=== PATIENT | female | born 1980 | race Hispanic/Latino ===

== ENCOUNTER 2018-12-14 08:24 | Inpatient (IN) | payer SELFPAY ==
[~2018-12-14] VITALS: Ht 162.6 cm; Wt 91.2 kg
[2018-12-14] MEDS ORDERED: SODIUM CHLORIDE 0.9% 1000ML 1,000 ML IV STA (08:50)
[2018-12-14] MEDS ORDERED: VANCOMYCIN 1GM/NS 250 ML 250 ML IV ONE (09:30)
[2018-12-14] MEDS: PIPER-TAZ 3.375 GM 50 ML IV SCH ×3 (09:30→21:08)
[2018-12-14 09:42] LABS: BASOPHILS % 0.4 % (0.0-1.0); EOSINOPHILS # (AUTO) 0.1 (0.0-0.4); EOSINOPHILS % 0.7 % (0.0-6.0); HEMATOCRIT 38.8 % (34.2-44.1); HEMOGLOBIN 13.7 g/dL (12.0-16.0); MEAN CORPUSCULAR HEMOGLOBIN 28.8 pg (28-32); MEAN CORPUSCULAR HGB CONC 35.3 g/dL (31-35); MEAN CORPUSCULAR VOLUME 81.5 fL (81-99); MONOCYTES # (AUTO) 0.4 (0.2-0.8); MONOCYTES % 4.3 % (4.4-11.3); NEUTROPHILS # (AUTO) 6.9 (2.1-6.9); NEUTROPHILS % 73.1 % (38.7-80.0); PLATELET COUNT 382 x10e3/uL (140-360); RED BLOOD COUNT 4.76 x10e6/uL (3.6-5.1); RED CELL DISTRIBUTION WIDTH 12.9 % (11.7-14.4)
[2018-12-14 09:47] LABS: BILIRUBIN,URINE NEGATIVE (NEGATIVE); CLARITY,URINE CLOUDY (CLEAR); COLOR,URINE YELLOW (YELLOW); KETONES,URINE 1+ (NEGATIVE); LEUKOCYTE ESTERASE ,URINE NEGATIVE (NEGATIVE); NITRITE,URINE POSITIVE (NEGATIVE); PROTEIN,URINE DIPSTICK TRACE (NEGATIVE); URINE UROBILINOGEN 0.2 mg/dL (0.2 - 1)
[2018-12-14 09:48] LABS: PREGNANCY TEST, URINE NEGATIVE (NEGATIVE)
[2018-12-14 09:49] LABS: INR 0.84; PROTHROMBIN TIME 12.3 seconds (11.9-14.5)
[2018-12-14 09:50] LABS: PARTIAL THROMBOPLASTIN TIME 29.3 seconds (23.8-35.5)
[2018-12-14 09:59] LABS: BACTERIA,URINE MODERATE /HPF; EPITHELIAL CELLS,URINE MANY /LPF
[2018-12-14 10:02] LABS: ALANINE AMINOTRANSFERASE 21 IU/L (0-55); ALBUMIN/GLOBULIN RATIO 0.6 (0.8-2.0); ALKALINE PHOSPHATASE 118 IU/L (40-150); ANION GAP 13.7 mmol/L (8-16); BLOOD UREA NITROGEN 7 mg/dL (7-26); BUN/CREATININE RATIO 10 (6-25); CALCIUM 9.3 mg/dL (8.4-10.2); CARBON DIOXIDE 25 mmol/L (22-29); CHLORIDE 96 mmol/L (98-107); CREATINE KINASE 24 IU/L (29-168); CREATININE, SERUM 0.71 mg/dL (0.57-1.11); EST GLOMERULAR FILTRATION RATE > 60 ML/MIN (60-); GLUCOSE 392 mg/dL (74-118); MAGNESIUM 1.7 MG/DL (1.3-2.1); POTASSIUM 3.7 mmol/L (3.5-5.1); SODIUM 131 mmol/L (136-145)
[2018-12-14] MEDS ORDERED: DEXTROSE 50% SYRINGE 50 ML IV PRN (11:00)
[2018-12-14] MEDS ORDERED: MORPHINE SULFATE 2 MG/ML SYR 1ML IV PRN (11:00)
--- NOTE | 2018-12-14 11:08 | Diagnostic Imaging Report ---
EXAMINATION: CHEST SINGLE (PORTABLE) INDICATION: DIAB FOOT ULCER/CELLULITIS COMPARISON: None FINDINGS: TUBES and LINES: None. LUNGS: Lungs are mildly hypoinflated. There is no evidence of pneumonia or pulmonary edema. PLEURA: No pleural effusion or pneumothorax. HEART AND MEDIASTINUM: The cardiomediastinal silhouette is unremarkable. BONES AND SOFT TISSUES: No acute osseous lesion. Soft tissues are unremarkable. UPPER ABDOMEN: No free air under the diaphragm. IMPRESSION: Mild bibasilar subsegmental atelectasis. Signed by: Dr. Juju Dong M.D. on 12/14/2018 11:04 AM
--- NOTE | 2018-12-14 11:18 | Diagnostic Imaging Report ---
FOOT LEFT COMPLETE - 3 views HISTORY: Diabetic foot ulcer. Cellulitis. COMPARISON: None available. FINDINGS: Bones: No acute displaced fracture. Osseous alignment is within normal limits. Joints: The joint spaces are well-maintained. Soft tissues: Vascular calcifications. IMPRESSION: No acute osseous abnormality. Signed by: Dr. Juju Dong M.D. on 12/14/2018 11:14 AM
--- OUTSIDE RECORDS SUMMARY | 2018-12-14 11:29 | XMS REPORT ---
Author Author [facility] Address Unknown Phone Unavailable Care Team Providers Care Sales Route Driver Name Role Phone Kyree CHAVEZ Unavailable Unavailable Problems This patient has no known problems. Allergies, Adverse Reactions, Alerts This patient has no known allergies or adverse reactions. Medications This patient has no known medications. Encounters Start Date/Time End Date/Time Encounter Type Admission Type Attending Clinicians Care Facility Care Department Encounter ID 2018-12-11 17:11:54 2018-12-11 17:11:54 Emergency [facility] [id number] 2018-12-11 15:38:00 2018-12-11 15:38:00 Emergency [facility] [id number] Results Test Description Test Time Test Comments Text Results Atomic Results Result Comments CHEST SINGLE (PORTABLE) 2018-12-14 11:04:00 [facility] [address] [address] Patient Name: TIANA BOWMAN MR #: [id number] : 1980 Age/Sex: 38/F Req #: [id number] Adm Physician: Ordered by: CIARAN CHAVEZ MD Report #: [id number] Location: ER Room/Bed: Procedure: [id number] DX/CHEST SINGLE (PORTABLE) Exam Date: Exam Time: REPORT STATUS: Signed EXAMINATION: CHEST SINGLE (PORTABLE) INDICATION: DIAB FOOT ULCER/CELLULITIS COMPARISON: None FINDINGS: TUBES and LINES: None. LUNGS: Lungs are mildly hypoinflated. There is no evidence of pneumonia or pulmonary edema. PLEURA: No pleural effusion or pneumothorax. HEART AND MEDIASTINUM: The cardiomediastinal silhouette is unremarkable. BONES AND SOFT TISSUES: No acute osseous lesion. Soft tissues are unremarkable. UPPER ABDOMEN: No free air under the diaphragm. IMPRESSION: Mild bibasilar subsegmental atelectasis. Signed by: Dr. Juju Dong M.D. on 12/14/2018 11:04 AM Dictated By: BOUCHRA DONG MD, MD 03 Transcribed By: TRAY on 12/14/181103 COPY TO: CIARAN CHAVEZ MD FOOT LEFT COMPLETE 2018-12-14 11:04:00 [address] [address] Patient Name: TIANA BOWMAN MR #: [id number] : 1980 Age/Sex: 38/F Req #: [id number] Adm Physician: Ordered by: CIARAN CHAVEZ MD Report #: [id number] Location: ER Room/Bed: Procedure: [id number] DX/FOOT LEFT COMPLETE Exam Date: Exam Time: REPORT STATUS: Signed FOOT LEFT COMPLETE - 3 views HISTORY: Diabetic foot ulcer. Cellulitis. COMPARISON: None available. FINDINGS: Bones: No acute displaced fracture. Osseous alignment is within normal limits. Joints: The joint spaces are well-maintained. Soft tissues: Vascular calcifications. IMPRESSION: No acute osseous abnormality. Signed by: Dr. Juju Dong M.D. on 12/14/2018 11:14 AM Dictated By: BOUCHRA DONG MD, MD 13 Transcribed By: TRAY on 12/14/181113 COPY TO: CIARAN CHAVEZ MD
--- OUTSIDE RECORDS SUMMARY | 2018-12-14 11:29 | XMS REPORT | Clinical Summary ---
Author Author [facility] Organization [facility] Address Unknown Phone Unavailable Care Team Providers Care Board Handler Name Role Phone PCP Unavailable Allergies No Known Allergies Medications End Date Status Medication Sig Dispensed Refills Start Date Active blood glucose Use as 1 Kit 0 meterIndications: Type 2 directed.. 7 diabetes mellitus without complication, without long-term current use of insulin Active blood glucose (PRECISION 2 times 100 Each 11 XTRA TEST STRIPS) test weekly to 7 stripsIndications: Type 2 test blood diabetes mellitus without sugar. complication, without long-term current use of insulin Active lancets 28 by 100 Each gaugeIndications: Type 2 MISCELLANEOUS 7 diabetes mellitus without route 2 times complication, without weekly. long-term current use of insulin 01/10/2019 Active metFORMIN (GLUCOPHAGE) Take 1 tablet 60 tablet 0 500 mg tabletIndications: by mouth 2 9 Type 2 diabetes mellitus times daily without complication, (with meals) without long-term current for 30 days. use of insulin 12/21/2018 Active clindamycin (CLEOCIN HCL) Take 1 40 capsule 0 300 mg capsule by 9 capsuleIndications: Left mouth 4 times foot pain daily for 10 days. Active clotrimazole (LOTRIMIN) 1 Apply to 30 g 0 % topical affected area 9 creamIndications: Left 2 times foot pain daily. 12/11/2018 Discontinued metFORMIN (GLUCOPHAGE) Take 1 tablet 180 tablet 0 500 mg tabletIndications: by mouth 2 7 Type 2 diabetes mellitus times daily without complication, (with meals). without long-term current use of insulin Active Problems Problem Noted Date Non-compliance with treatment 04/19/2009 HTN (hypertension) 02/28/2009 GDM, class A2 02/28/2009 Pulmonary embolism - h/o 02/28/2009 Encounters Care Team Description Date Type Specialty Hermes Mcmillan MD Left foot pain (Primary Dx); Type 2 diabetes mellitus without complication, without long-term current use of insulin 12/11/2018 Emergency Emergency Medicine 12/11/2018 Travel after 12/13/2017 Family History Medical History Relation Name Comments Family Medical History Unknown Relation Name Status Comments Social History Date Tobacco Use Types Packs/Day Years Used Never Smoker Alcohol Use Drinks/Week oz/Week Comments No Sex Assigned at Date Recorded Not on file Industry Job Start Date Occupation Not on file Not on file Not on file Travel End Travel History Travel Start No recent travel history available. Last Filed Vital Signs Time Taken Vital Sign Reading 12/11/2018 7:26 PM [employer] Blood Pressure 126/86 12/11/2018 7:26 PM [employer] Pulse 90 12/11/2018 7:26 PM [employer] Temperature 36.9 C (98.4 F) 12/11/2018 7:26 PM [employer] Respiratory Rate 16 12/11/2018 7:26 PM [employer] Oxygen Saturation 99% - Inhaled Oxygen - Concentration 12/11/2018 2:02 PM [employer] Weight 87.5 kg (193 lb) - Height - 02/12/2017 2:34 PM CDT Body Mass Index 36.47 Plan of Treatment Health Maintenance Due Date Last Done Comments DM Retinal Exam (Yearly) 2000 DM Foot Exam (Yearly) 01/27/2018 01/27/2017 DM HGBA1C (Yearly) 01/27/2018 01/27/2017, 03/19/2006 DM Microalbumin Urine 02/06/2018 02/06/2017, 01/27/2017, 04/05/2009, Scrn (Yearly) Additional history exists IMM Influenza Seasonal 08/02/2018Aug to December (>/=19 yrs) Cervical Cancer Scrn (3 02/13/2020 02/12/2017 Yrs) Procedures Comments Procedure Name Priority Date/Time Associated Diagnosis GLUCOSE POC Routine 12/11/2018 6:50 PM [employer]INE[employer] XRAY ANKLE 3 VIEW MIN STAT 12/11/2018 Left foot pain 5:30 PM [employer] XRAY FOOT 3 VIEWS MIN STAT 12/11/2018 Left foot pain 5:30 PM [employer] BMP POC Routine 12/11/2018 5:13 PM [employer] ENGINEER CBC/DIFF STAT 12/11/2018 4:24 PM [employer] ENGINEER after 12/13/2017 Results * GLUCOSE POC (12/11/2018 6:50 PM CORE JAVA ENGINEER) Glucose POC 310 (H) 74 - 106 mg/dL [facility] Performing Organization Address City/State/Zipcode Phone Number [facility] * XRAY FOOT 3 VIEWS MIN (12/11/2018 5:30 PM CORE JAVA ENGINEER) Impressions Performed At IMPRESSION: SMS 1.No acute fracture or malalignment. 2.Diffuse subcutaneous edema. This [facility] radiology report is a preliminary resident dictation until finalized by an attending.Changes to this preliminary report may occur in an additional preliminary or finalized version. Dictated By: Cindy eTixeira MD, 12/11/2018 5:36 PM I have reviewed the study and agree with the findings in this report. Signed By: Cullen Neff MD, 12/11/2018 6:42 PM Narrative Performed At EXAM: XR LEFT ANKLE 3 VIEWS SMS EXAM: XR LEFT FOOT 3 VIEWS DATE: 12/11/2018 5:11 PM INDICATION: left foot pain and swelling. Left foot pain ADDITIONAL HISTORY: '38 y.o female?who came to the with c/o swelling and pain to left foot. Pt reports that she had a cut on her greater toe and states she began to have inflammation and redness to her foot.' COMPARISON: None TECHNIQUE: 3 views of the ankle, 3 views of the foot. FINDINGS: Ankle: No acute fracture or malalignment is identified. The ankle mortise is congruent. No ankle joint effusion is appreciated. Foot: No acute fracture or malalignment is identified. Soft tissues: Diffuse subcutaneous edema. No subcutaneous emphysema. Overlying densities over the toes likely represent superficial debris. Vascular calcifications noted. Procedure Note Interface, Rad/Mammog In - 12/11/2018 6:47 PM C[employer] JAVA ENGINEER EXAM: XR LEFT ANKLE 3 VIEWS EXAM: XR LEFT FOOT 3 VIEWS DATE: 12/11/2018 5:11 PM INDICATION: left foot pain and swelling. Left foot pain ADDITIONAL HISTORY: '38 y.o female?who came to the with c/o swelling and pain to left foot. Pt reports that she had a cut on her greater toe and states she began to have inflammation and redness to her foot.' COMPARISON: None TECHNIQUE: 3 views of the ankle, 3 views of the foot. FINDINGS: Ankle: No acute fracture or malalignment is identified. The ankle mortise is congruent. No ankle joint effusion is appreciated. Foot: No acute fracture or malalignment is identified. Soft tissues: Diffuse subcutaneous edema. No subcutaneous emphysema. Overlying densities over the toes likely represent superficial debris. Vascular calcifications noted. IMPRESSION IMPRESSION: 1. No acute fracture or malalignment. 2. Diffuse subcutaneous edema. This [facility] radiology report is a preliminary resident dictation until finalized by an attending. Changes to this preliminary report may occur in an additional preliminary or finalized version. Dictated By: Cindy Teixeira MD, 12/11/2018 5:36 PM I have reviewed the study and agree with the findings in this report. Signed By: Cullen Neff MD, 12/11/2018 6:42 PM Performing Organization Address City/State/[facility] Phone Number SMS * XRAY ANKLE 3 VIEW MIN (12/11/2018 5:30 PM CORE JAVA ENGINEER) Impressions Performed At IMPRESSION: SMS 1.No acute fracture or malalignment. 2.Diffuse subcutaneous edema. This [facility] radiology report is a preliminary resident dictation until finalized by an attending.Changes to this preliminary report may occur in an additional preliminary or finalized version. Dictated By: Cindy Teixeira MD, 12/11/2018 5:36 PM I have reviewed the study and agree with the findings in this report. Signed By: Cullen Neff MD, 12/11/2018 6:42 PM Narrative Performed At EXAM: XR LEFT ANKLE 3 VIEWS SMS EXAM: XR LEFT FOOT 3 VIEWS DATE: 12/11/2018 5:11 PM INDICATION: left foot pain and swelling. Left foot pain ADDITIONAL HISTORY: '38 y.o female?who came to the with c/o swelling and pain to left foot. Pt reports that she had a cut on her greater toe and states she began to have inflammation and redness to her foot.' COMPARISON: None TECHNIQUE: 3 views of the ankle, 3 views of the foot. FINDINGS: Ankle: No acute fracture or malalignment is identified. The ankle mortise is congruent. No ankle joint effusion is appreciated. Foot: No acute fracture or malalignment is identified. Soft tissues: Diffuse subcutaneous edema. No subcutaneous emphysema. Overlying densities over the toes likely represent superficial debris. Vascular calcifications noted. Procedure Note Interface, Rad/Mammog In - 12/11/2018 6:47 PM C[employer] J[employer] ENGINEER EXAM: XR LEFT ANKLE 3 VIEWS EXAM: XR LEFT FOOT 3 VIEWS DATE: 12/11/2018 5:11 PM INDICATION: left foot pain and swelling. Left foot pain ADDITIONAL HISTORY: '38 y.o female?who came to the with c/o swelling and pain to left foot. Pt reports that she had a cut on her greater toe and states she began to have inflammation and redness to her foot.' COMPARISON: None TECHNIQUE: 3 views of the ankle, 3 views of the foot. FINDINGS: Ankle: No acute fracture or malalignment is identified. The ankle mortise is congruent. No ankle joint effusion is appreciated. Foot: No acute fracture or malalignment is identified. Soft tissues: Diffuse subcutaneous edema. No subcutaneous emphysema. Overlying densities over the toes likely represent superficial debris. Vascular calcifications noted. IMPRESSION IMPRESSION: 1. No acute fracture or malalignment. 2. Diffuse subcutaneous edema. This [facility] radiology report is a preliminary resident dictation until finalized by an attending. Changes to this preliminary report may occur in an additional preliminary or finalized version. Dictated By: Cindy Teixeira MD, 12/11/2018 5:36 PM I have reviewed the study and agree with the findings in this report. Signed By: Cullen Neff MD, 12/11/2018 6:42 PM Performing Organization Address City/State/Zipcode Phone Number SMS * BMP POC (12/11/2018 5:13 PM CORE JAVA ENGINEER) CO2 POC 28Comment: Physician Notified 21 - 32 mmol/L [facility] Chloride POC 98 98 - 107 mmol/L [facility] Potassium POC 3.9 3.50 - 5.10 mmol/L [facility] Sodium POC 138 136 - 145 mmol/L [facility] Glucose POC 337 (H) 74 - 106 mg/dL [facility] Urea Nitrogen 8 7 - 18 mg/dL [facility] 1 Creatinine POC 0.3 (L) 0.6 - 1.3 mg/dL [facility] 1 Calcium Ionized 1.16 1.15 - 1.29 mmol/L [facility] 1 Hemoglobin POC 15.0 12.0 - 16.0 g/dL [facility] Hematocrit POC 44.0 37.0 - 47.0 % [facility] GFR, Estimated >60 mL/min/1.73 m2 [facility] GFR, Estim, >60 mL/min/1.73 m2 [facility] Afr-Am [facility] 1 Performing Organization Address City/State/Zipcode Phone Number [facility] * CBC/DIFF (12/11/2018 4:24 PM CORE JAVA ENGINEER) WBC 10.6 4.5 - 11.0 K/uL [facility] RBC 4.99 4.20 - 5.40 M/uL [facility] Hemoglobin 14.1 12.0 - 16.0 g/dL [facility] Hematocrit 41.3 37.0 - 47.0 % [facility] MCV 83 82 - 92 fL [facility] MCH 28.3 27.0 - 32.0 pg [facility] MCHC 34.1 32.0 - 36.0 g/dL [facility] RDW 38.6 36.4 - 46.3 fL [facility] 2 Platelet 364 150 - 400 K/uL [facility] 2 Mean Platelet 10.9 9.4 - 12.4 fL [facility] Volume [facility] 2 Percent NRBC 0.0 [facility] Absolute NRBC 0.00 [facility] 2 Neutrophil 65.0 34.0 - 70.0 % [facility] 2 Lymphocyte 27.0 20.0 - 50.0 % [facility] 2 Monocyte 5.5 5.0 - 12.0 % [facility] 2 Eosinophil 1.4 0.7 - 5.0 % [facility] 2 Basophil 0.6 0.1 - 1.2 % [facility] 2 Pct Immat Gran 0.5 0.0 - 0.5 [facility] 2 Neutrophil, Abs 6.93 (H) 1.56 - 6.13 K/uL [facility] 2 Lymphocyte, Abs 2.87 1.18 - 3.74 K/uL [facility] Monocyte, Abs 0.58 (H) 0.24 - 0.36 K/uL [facility] 2 Eosinophil, Abs 0.15 0.04 - 0.36 K/uL [facility] 2 Basophil, Abs 0.06 0.01 - 0.08 K/uL [facility] 2 Absol Immat 0.05 (H) 0.00 - 0.03 K/uL [facility] Gran [facility] 2 Specimen Blood Performing Organization Address City/State/Zipcode Phone Number [facility] 2 after 12/13/2017 Insurance Type Payer Benefit Subscriber ID Effective Phone Address Plan / Dates Group [facility] xxxxxx 2016-1 [facility] [id number] [place] [address] (Self)
[2018-12-14] MEDS: ONDANSETRON HCL INJ 2MG/ML 2ML 2 MG/ML VIAL IV PRN ×2 (11:37→21:15)
[2018-12-14] MEDS: MORPHINE SULFATE INJ 4 MG/ML INJ 1ML IV PRN ×3 (11:41→21:20)
[2018-12-14] MEDS: INSULIN LISPRO 100 UNIT/1 ML 3ML VIAL SQ SCH ×3 (11:53→21:17)
--- NOTE | 2018-12-14 13:55 | NUR ---
Patient admitted from ER, transferred from stretcher to bed, tolerated well. Oriented to room and environment. A&O x3.
[2018-12-14 14:00] VITALS: BP 104/68
[2018-12-14 14:05] VITALS: BP 145/98
--- NOTE | 2018-12-14 14:30 | NUR ---
Pt received from ER with family at bedside. Micronesian speaking only. Oriented to staff and surroundings. Encouraged to press call [facility] if help needed. Pt with left foot/leg cellulitis, and left foot 5th toe purplish color noted under the toe. Left great toe with healing cuts noted, and no drainage noted. Left leg marked to note progression of redness. Call dutton within reach. Emotional support given. Will monitor
[2018-12-14 14:34] VITALS: BP 145/98
[2018-12-14] MEDS ORDERED: CLOTRIMAZOLE15 GM TOP (14:35)
[2018-12-14] MEDS ORDERED: CLINDAMYCIN HC150 MG PO (14:35)
[2018-12-14] MEDS ORDERED: METFORMIN HCL500 MG PO (14:35)
[2018-12-14] MEDS ORDERED: TYLENOL EXTRA500 MG PO (14:35)
--- NOTE | 2018-12-14 15:46 | Consultation ---
DATE OF CONSULTATION: December 14, 2018 This patient who is an 88-year-old female with a history of diabetes mellitus comes in with an infection of her foot since November 28, 2018. No history of trauma. The patient was seen in the emergency room. She does have drainage coming from her left foot between the 5th and 4th toe. PAST MEDICAL HISTORY: Diabetes. PAST SURGICAL HISTORY: . ALLERGIES: NKA. SOCIAL HISTORY: Does not smoke or drug abuse or alcohol abuse. FAMILY HISTORY: Otherwise unremarkable. REVIEW OF SYSTEMS HEENT: Negative. PULMONARY: Negative. CARDIAC: Negative. PHYSICAL EXAMINATION EXTREMITIES: She does have redness and swelling of her left foot with drainage coming between the 4th and 5th toe. IMPRESSION: Infection of the foot concerning for osteomyelitis. Agree with vancomycin. Agree with Zosyn. Obtain x-ray. Obtain sed rate, C-reactive protein and MRI with and without contrast. Podiatry consultation. May end up losing her 5th toe. Will follow. Job#: [id number] MONICA
[2018-12-14 16:10] VITALS: BP 131/85
--- NOTE | 2018-12-14 16:56 | NUR ---
WOUND CARE CONSULTATION- INITIAL EVALUATION -Patient admitted to ER from Home for worsening ulcer to foot with increased pain. HX: DM, . LABS WBC 9.46 HGB13.7 HCT38.8 CLN016 ALB3.0 PATIENT VISIT: Patient in bed AAOX4 - Calm and excellent historian. - Drainage at 4th Webspace, 5th Toe noted - Open to air at time of visit. - States areas on foot started with the Left Hallux and Heel and was treating with venitian blue solution. Last area that opened was on 4th webspace at 5th Toe. She was prescribed a cream to use twice a day and states it started gradually getting worse and more painful in the last week. - Left Foot 5th Toe dark purple - Possible ischemia, dark redness continues to forefoot and changes to redness. - Voices increased pain at 5th Toe area. - No cultures done during visit. Not draining much. Dry crusted blood noted. - Palpable pedal pulses - Palpable but faint pulses to posterior tibial left. - Dr. Richard Chopra DPM on case for foot ulcers - Dr. Aburto on case for Infectious diseases management. Infection of the foot concerning for osteomyelitis. IV Vancomycin. - Blood flow studies performed today & awaiting results - Temporary orders set while awaiting for Dr. Richard Cast to evaluate and treat. - MRI of Foot Pending IMPRESSION: 1. Left Foot DFU- Grade 3 RECOMMENDATION: Conservative Treatment While Awaiting for Dr. Richard Cast to evaluate 1. Left Foot Infected DFU- Grade 3 with Ischemia at 5th Toe. - Cleanse wound with NS and 4x4 gauze - Apply Betadine Moistened gauze Dressing and Wrap with Kerlix Daily until evaluated by Dr. Richard Cast Thank you for consulting with Wound Care. Addendum: 12/14/18 at 1712 by Prosper Bright RN Amended: Links added.
--- NOTE | 2018-12-14 19:35 | NUR ---
RECEIVED PATIENT RESTING IN BED, RESPIRATIONS EVEN AND UNLABORED. NO ACUTE DISTRESS NOTED. LEFT FOOT CELLULITIS NOTE, RED AND WARM TO TOUCH. DENIES PAIN OR DISCOMFORT. CALL LIGHT WITHIN REACH. BED IN THE LOWEST POSITION.
[2018-12-14 20:00] VITALS: BP 116/81
[2018-12-14] MEDS: VANCOMYCIN 1GM/NS 250 ML 250 ML IV SCH (21:45)
[2018-12-15] VITALS (7 sets, daily range): BP systolic 102–132; BP diastolic 59–74
[2018-12-15] MEDS: PIPER-TAZ 3.375 GM 50 ML IV SCH ×4 (03:29→20:48)
--- NOTE | 2018-12-15 04:20 | NUR ---
DRESSING CHANGE TO LEFT FOOT. PATIENT TOLERATED WELL
[2018-12-15 06:15] LABS: BASOPHILS % 0.2 % (0.0-1.0); EOSINOPHILS # (AUTO) 0.1 (0.0-0.4); EOSINOPHILS % 1.1 % (0.0-6.0); HEMATOCRIT 32.6 % (34.2-44.1); HEMOGLOBIN 11.3 g/dL (12.0-16.0); LYMPHOCYTES # (AUTO) 2.3 (1.0-3.2); LYMPHOCYTES % 25.4 % (18.0-39.1); MEAN CORPUSCULAR HEMOGLOBIN 28.8 pg (28-32); MEAN CORPUSCULAR HGB CONC 34.7 g/dL (31-35); MEAN CORPUSCULAR VOLUME 83.2 fL (81-99); MONOCYTES # (AUTO) 0.6 (0.2-0.8); MONOCYTES % 6.5 % (4.4-11.3); NEUTROPHILS % 66.4 % (38.7-80.0); PLATELET COUNT 339 x10e3/uL (140-360); RED BLOOD COUNT 3.92 x10e6/uL (3.6-5.1); RED CELL DISTRIBUTION WIDTH 12.7 % (11.7-14.4)
[2018-12-15 06:40] LABS: ALANINE AMINOTRANSFERASE 17 IU/L (0-55); ALBUMIN 2.4 g/dL (3.5-5.0); ALBUMIN/GLOBULIN RATIO 0.6 (0.8-2.0); ALKALINE PHOSPHATASE 95 IU/L (40-150); ANION GAP 11.2 mmol/L (8-16); BLOOD UREA NITROGEN 7 mg/dL (7-26); BUN/CREATININE RATIO 11 (6-25); CALCIUM 8.8 mg/dL (8.4-10.2); CARBON DIOXIDE 25 mmol/L (22-29); CHLORIDE 98 mmol/L (98-107); CREATININE, SERUM 0.65 mg/dL (0.57-1.11); EST GLOMERULAR FILTRATION RATE > 60 ML/MIN (60-); GLUCOSE 329 mg/dL (74-118); POTASSIUM 4.2 mmol/L (3.5-5.1); SODIUM 130 mmol/L (136-145)
[2018-12-15] MEDS: INSULIN LISPRO 100 UNIT/1 ML 3ML VIAL SQ SCH ×4 (07:30→20:48)
--- NOTE | 2018-12-15 07:51 | NUR ---
PATIENT IS AWAKE, ALERT, AND IN STABLE CONDITION WITH NO S/S OF RESPIRATORY DISTRESS. NO PAIN VOICED. DRESSING TO LEFT FOOT IS DRY AND INTACT. CALL LIGHT IS WITHIN REACH, PATIENT INSTRUCTED TO CALL FOR ASSISTANCE NEEDED
--- NOTE | 2018-12-15 08:23 | NUR ---
CALL PLACED OUT TO DR. HDZ REGARDING PRN MEDICATION FOR PATIENT'S C/O HEADACHE/HEAD PAIN- AWAITING CALLBACK.
--- NOTE | 2018-12-15 09:39 | Consultation ---
DATE OF CONSULTATION: December 14, 2018 HISTORY OF PRESENT ILLNESS/CHIEF COMPLAINT: Patient was seen in the ED with infection associated to her left foot. Apparently, several days ago was seen at [facility] ED. She was given antibiotics and sent home with p.o. antibiotics due to the fact that the foot persists with erythema, pain and discoloration. She presents at this point to the ED at [facility] for further evaluation and recommendations. PAST MEDICAL HISTORY: Does admit of uncontrolled diabetes. MEDICATIONS: Please see MAR for current medication list. ALLERGIES: NONE REPORTED. SURGICAL HISTORY: Noncontributory. FAMILY HISTORY: Noncontributory. REVIEW OF SYSTEMS: Otherwise negative. PHYSICAL EXAMINATION VITAL SIGNS: Stable. She is afebrile. GENERAL: A and O times 3. NAD. HEENT: Normocephalic, atraumatic and anicteric. ABDOMEN: Soft, nontender and nondistended. RESPIRATORY: Symmetrical expansion. PSYCHIATRIC: Normal affect. EXTREMITIES: Discoloration associated to the left foot, particularly 5th digit with what appears to be subtle drainage emanating from the 4th interdigital space. No soft tissue crepitus. No evidence of lymphangitis or cellulitis. Worrisome cyanosis to the digit accompanies the same. The arterial Dopplers that were done appear to have good perfusion to the extremity. X-rays do show the presence of vessel calcification, but no acute findings. ASSESSMENT: Uncontrolled diabetic patient with foot complications. PLAN: Recommend admission. IV antibiotics and monitor progression. Further recommendations to follow. Job#: [id number] MONICA
[2018-12-15] MEDS: VANCOMYCIN 1GM/NS 250 ML 250 ML IV SCH ×2 (10:23→21:35)
[2018-12-15] MEDS: ONDANSETRON HCL INJ 2MG/ML 2ML 2 MG/ML VIAL IV PRN (10:52)
--- NOTE | 2018-12-15 11:10 | NUR ---
WOUND CARE COMPLETED TO PATIENT'S LEFT FOOT- DRESSING DRY AND INTACT. OFFERED PATIENT PAIN MEDICATION BUT PATIENT REFUSED AND WILL LET ME KNOW WHEN SHE NEEDS IT.
--- NOTE | 2018-12-15 12:42 | NUR ---
CALL PLACED OUT TO DR. HDZ- AWAITING CALLBACK.
--- NOTE | 2018-12-15 14:04 | NUR ---
RECEIVED CALLBACK FROM DR. HDZ- RECEIVED TYLENOL ORDER.
--- NOTE | 2018-12-15 14:06 | NUR ---
PATIENT OFF THE UNIT TO MRI- PATIENT IS IN STABLE CONDITION WITH NO S/S OF RESPIRATORY DISTRESS.
--- NOTE | 2018-12-15 15:05 | Diagnostic Imaging Report ---
TECHNIQUE: Magnetic resonance imaging of the LEFT foot was performed WITHOUT injected contrast. HISTORY: Left foot pain, evaluate for osteomyelitis. COMPARISON: None available. DISCUSSION: Motion artifact limits evaluation. No bone marrow edema or T1 replacement. Soft tissue ulceration of the medial hallux. No visualized sinus tract or abscess. Edema and soft tissues IMPRESSION: Ulceration of the medial hallux. No osteomyelitis. Signed by: Dr. Jah Otero M.D. on 12/15/2018 3:02 PM
[2018-12-15] MEDS: ACETAMINOPHEN 325 MG TAB PO PRN (15:07)
--- NOTE | 2018-12-15 16:40 | NUR ---
CASE MANAGEMENT INITIAL ASSESSMENT Cocktail Server to bedside to discuss plan of care with patient/family. CM/SW role and care transitions discussed. Anticipated discharge plan discussed along with duration of care. CM/SW discussed patients right to make decisions in care. CM/SW work hours given. Patient lives: 1 STORY HOME W FAMILY; 3 CHILDREN AND /TONO Admit/Transfer: ER Hospital/ER visits since last admit: NO POA/Emergency contact: YOAV SILVESTRE / SISTER @ [phone] Current/Previous Home Health: NONE PCP/Follow-up Care: NONE Current/Previous DME: NONE Other Services: NONE Employment Status: HOUSEWIFE Areas of Concerns: SELF PAY; NO INSURANCE Referral Needs: SW; NOTIFIED Education Needs: NONE IMM/OROZCO given and signed (if applicable): N/A Goal for discharge: RETURN HOME CM/SW left business card at the bedside with contact information. Name and number was also written on the patients whiteboard. Patient verbalized understanding of discussion. CM will follow-up with ongoing discharge and transition of care needs.
--- NOTE | 2018-12-15 19:20 | NUR ---
PATIENT RESTING IN BED- IS IN STABLE CONDITION WITH NO S/S OF RESPIRATORY DISTRESS. NO PAIN VOICED. DRESSING TO LEFT FOOT IS DRY AND INTACT. CALL LIGHT IS WITHIN REACH, PATIENT INSTRUCTED TO CALL FOR ASSISTANCE NEEDED. REPORT GIVEN TO ONCOMING NURSE.
--- NOTE | 2018-12-15 19:43 | NUR ---
PT IS RESTING IN BED. NO RESPIRATORY DISTRESS NOTED. BED IN THE LOWEST POSITION, LOCKED, AND CALL LIGHT WITHIN REACH. WILL CONTINUE TO MONITOR.
[2018-12-16] VITALS (7 sets, daily range): BP systolic 111–132; BP diastolic 58–81
[2018-12-16] MEDS: PIPER-TAZ 3.375 GM 50 ML IV SCH ×4 (03:18→20:54)
[2018-12-16] MEDS: INSULIN LISPRO 100 UNIT/1 ML 3ML VIAL SQ SCH ×4 (08:56→20:55)
--- NOTE | 2018-12-16 08:56 | Progress Note ---
DATE: December 16, 2018 SUBJECTIVE: Ms. Montano is a 38-year-old female with history of diabetes that went to [facility] because she had a left foot ulcer. She was put on p.o. antibiotics and sent home. She did not get better so she decided to come here. PHYSICAL EXAMINATION: GENERAL: Today, she is awake and alert. VITAL SIGNS: Temperature is 98.6, blood pressure is 111/70. HEART: Regular rate. LUNGS: Clear to auscultation. ABDOMEN: Soft. EXTREMITIES: In the lower extremity, the left fifth toe looks dark, blackish, and then she has some lesions on the left great toe. The erythema and edema of the leg is going down. BLOOD WORK: Potassium 4.2, creatinine is 0.66, glucose 329. White count 9.02, hemoglobin 11.3, hematocrit 32.6. The MRI was negative for osteomyelitis. I am waiting for an official report of the arterial Doppler. ASSESSMENT: 1. Uncontrolled diabetes. 2. Left foot cellulitis with infected ulcer. 3. Diabetic foot ulcer. 4. Probable peripheral artery disease. PLAN: At present time is to continue wound care, IV antibiotics. Stucco Plasterer and infectious disease following the patient with me. Will see how she does and may need amputation of the fifth toe. All this was discussed with patient. All questions were answered to satisfaction. Job#: [id number]
[2018-12-16] MEDS: VANCOMYCIN 1GM/NS 250 ML 250 ML IV SCH (09:55)
[2018-12-16] MEDS ORDERED: VANCOMYCIN 1GM/NS 250 ML 250 ML IV SCH (12:00)
[2018-12-16] MEDS ORDERED: INFLUENZA VIRUS VAC SPLIT INJ 0.5 ML SYR IM NR (12:45)
[2018-12-16] MEDS: ACETAMINOPHEN 325 MG TAB PO PRN (14:56)
--- NOTE | 2018-12-16 19:19 | NUR ---
PATIENT IS IN STABLE CONDITION WITH NO S/S OF RESPIRATORY DISTRESS. NO PAIN VOICED. LEFT FOOT IS OPEN TO AIR ORDERED. FAMILY MEMBERS PRESENT IN ROOM. CALL LIGHT IS WITHIN REACH, PATIENT INSTRUCTED TO CALL FOR ASSISTANCE NEEDED. REPORT GIVEN TO ONCOMING NURSE.
--- NOTE | 2018-12-16 19:37 | NUR ---
PT IS RESTING IN BED WITH FAMILY AT BEDSIDE. NO RESPIRATORY DISTRESS NOTED. BED IN THE LOWEST POSITION, LOCKED, AND CALL LIGHT WITHIN REACH. WILL CONTINUE TO MONITOR.
[2018-12-16] MEDS: MORPHINE SULFATE INJ 4 MG/ML INJ 1ML IV PRN (19:55)
[2018-12-16] MEDS: VANCOMYCIN HCL 1.5 GM in SODIUM CHLORIDE 0.9% 250ML 300 ML IV SCH (21:47)
[2018-12-17] VITALS (7 sets, daily range): BP systolic 100–142; BP diastolic 65–81
[2018-12-17] MEDS: PIPER-TAZ 3.375 GM 50 ML IV SCH ×4 (03:28→21:00)
[2018-12-17] MEDS: INSULIN LISPRO 100 UNIT/1 ML 3ML VIAL SQ SCH ×4 (07:30→21:00)
--- NOTE | 2018-12-17 08:30 | Progress Note ---
DATE: December 17, 2018 Ms. Montano is a 38-year-old female with a history of diabetes that went to [facility] because she had a left small little toe infection. She was put on p.o. clindamycin and did not get better. She came to the emergency room. She was admitted. She has been evaluated by infectious disease and senior outside sales representative. She is on IV antibiotics. PHYSICAL EXAMINATION GENERAL: She is awake and alert. VITALS: Temperature is 98, blood pressure is 121/72. HEART: Regular rate. LUNGS: Clear to auscultation. ABDOMEN: Soft. BLOOD WORK: Potassium 4.2, creatinine is 0.65, glucose 329. White count 9.02, hemoglobin 11.3, hematocrit 32.6. MRI was negative for osteomyelitis. Foot x-ray was also negative. We are still waiting for the report of the arterial Doppler. It seems like she has some circulation problems on the left lower extremity. ASSESSMENT AND PLAN 1. Uncontrolled diabetes with foot ulcer. 2. Left foot cellulitis with infected and gangrenous left small toe. 3. Probable peripheral arterial disease. PLAN: At the present time, continue wound care, IV antibiotics. Infectious disease and senior outside sales representative following the patient with me. All of this was discussed with the patient. All questions were answered to satisfaction. Job#: [id number] MONICA
[2018-12-17] MEDS: MORPHINE SULFATE INJ 4 MG/ML INJ 1ML IV PRN ×2 (09:26→19:20)
[2018-12-17] MEDS: VANCOMYCIN HCL 1.5 GM in SODIUM CHLORIDE 0.9% 250ML 300 ML IV SCH ×2 (10:01→21:00)
--- NOTE | 2018-12-17 10:12 | NUR ---
Denies N/V, denies chills and fever HENT: Normocephalic/ atraumatic Eye: Anicteric Cardiac: S1, S2 Normal, no M/R/G Resp: CTAB, on RA : No drainage, voids in the bathroom GI: ASNTND, BM x1 last night soft formed, denies constipation Neuro: alert and responsive, pains well managed. Skin: Cellulitis and ulcer to left 5th digit, on abx Vancomycin and Zosyn Extremities: +2 DPP and PTP. Musculoskeletal: Moves all extremities, OOB ambulates in the room Call light within reach, will monitor
--- NOTE | 2018-12-17 11:00 | NUR ---
GAVE PACKET OF INFORMATION WITH COMMUNITY [employer] FOR ASSISTANCE WITH LOW TO NO INCOME TO PATIENT. RESOURCES THAT PATIENT MAY BE ABLE TO FOLLOW UP UPON DISCHARGE. PT EDUCATED ON EACH RESOURCE AND UNDERSTANDING HOW TO FOLLOW UP TO SEE IF QUALIFIED FOR EACH RESOURCE.
--- NOTE | 2018-12-17 19:15 | NUR ---
patient recieved awake, alert, lying quietly in bed. patient c/o pain to left foot at this time. wounds to left great and pinky toes remain open to air. pm assessment complete. family noted at the bedside. patient instructed to call for assistance when needed.
[2018-12-17] MEDS: ONDANSETRON HCL INJ 2MG/ML 2ML 2 MG/ML VIAL IV PRN (19:20)
--- NOTE | 2018-12-17 19:20 | NUR ---
patient medicated with morphine 4 mg and zofran 4 mg ivp for c/o left foot pain 06/11. will continue to monitor.
[2018-12-18] VITALS (7 sets, daily range): BP systolic 125–151; BP diastolic 69–78
[2018-12-18] MEDS: PIPER-TAZ 3.375 GM 50 ML IV SCH ×4 (02:20→20:20)
[2018-12-18] MEDS: INSULIN LISPRO 100 UNIT/1 ML 3ML VIAL SQ SCH ×4 (07:30→21:00)
[2018-12-18] MEDS: VANCOMYCIN HCL 1.5 GM in SODIUM CHLORIDE 0.9% 250ML 300 ML IV SCH ×2 (08:38→21:00)
--- NOTE | 2018-12-18 08:45 | NUR ---
The pt. is awake and alert. Morning meals is at the bedside and the pt. is advised that her meal is present. Blood glucose is currently 259 and insulin was given.
--- NOTE | 2018-12-18 19:00 | NUR ---
patient recieved awake, alert, lying quietly in bed. no c/o pain noted. left toe wounds remain open to air. pm assessment complete. many family members noted at the bedside. patient instructed to call for assistance when needed.
[2018-12-19] VITALS (7 sets, daily range): BP systolic 112–146; BP diastolic 62–84
[2018-12-19] MEDS: ONDANSETRON HCL INJ 2MG/ML 2ML 2 MG/ML VIAL IV PRN (00:40)
[2018-12-19] MEDS: MORPHINE SULFATE INJ 4 MG/ML INJ 1ML IV PRN (00:40)
--- NOTE | 2018-12-19 00:40 | NUR ---
patient medicated with morphine 4mg and zofran 4mg ivp for c/o left foot pain 04/11. will continue to monitor.
[2018-12-19] MEDS: PIPER-TAZ 3.375 GM 50 ML IV SCH ×4 (02:19→20:42)
--- NOTE | 2018-12-19 07:20 | NUR ---
The pt. is awake at rounds and denies pain or discomfort at this time. The side rails are up times 2.
[2018-12-19] MEDS: INSULIN LISPRO 100 UNIT/1 ML 3ML VIAL SQ SCH ×4 (07:30→21:00)
[2018-12-19] MEDS: VANCOMYCIN HCL 1.5 GM in SODIUM CHLORIDE 0.9% 250ML 300 ML IV SCH ×2 (08:28→20:42)
--- NOTE | 2018-12-19 19:00 | NUR ---
patient recieved awake, alert, lying quietly in bed. no c/o pain noted. left toe wounds remains open to air per orders. pm assessment complete. patient instructed to call for assistance when needed.
[2018-12-20] VITALS (8 sets, daily range): BP systolic 113–131; BP diastolic 60–77
[2018-12-20] MEDS: PIPER-TAZ 3.375 GM 50 ML IV SCH ×4 (02:15→20:48)
--- NOTE | 2018-12-20 07:18 | NUR ---
PATIENT IN BED WITH HEAD OF BED ELEVATED WATCHING TV, NO RESPIRATORY DISTRESS OBSERVED. ALL PERSONAL ITEMS CLOSE TO PATIENT. BED IN LOWER POSITION, CALL LIGHT AT REACH.
[2018-12-20] MEDS: INSULIN LISPRO 100 UNIT/1 ML 3ML VIAL SQ SCH ×7 (07:30→20:49)
[2018-12-20] MEDS ORDERED: SODIUM CHLORIDE 0.9% 250ML 250 ML ONE (08:41)
--- NOTE | 2018-12-20 10:11 | Progress Note ---
DATE: December 20, 2018 Ms. Montano is a 38-year-old female with diabetes came to the emergency room because of infection on her left foot. She has been seen by infectious disease and obstetrician. PHYSICAL EXAMINATION GENERAL: She is awake and alert. VITALS: Temperature is 98.7, blood pressure 117/65. HEART: Regular rate. LUNGS: Clear to auscultation. ABDOMEN: Soft. EXTREMITIES: On the left lower extremity, she has some healing lesions on the left great toe. Her left small toe looks dark, but the lesion is getting better. BLOOD WORK: Potassium is 4.2, creatinine is 0.65, glucose 329. White count 9.02, hemoglobin 11.3, hematocrit 32.6. MRI was negative for osteomyelitis. Arterial Doppler, we do not have a diagnosis yet. Urine culture shows urine infection with E. coli. The patient has been on Zosyn and is sensitive to Zosyn. ASSESSMENT AND PLAN 1. Uncontrolled diabetes with left foot ulcer. 2. Left foot cellulitis with infected and gangrenous left small toe. 3. Probable peripheral arterial disease. 4. Urinary tract infection with Escherichia coli. PLAN: At the present time, is to continue wound care and IV antibiotics. As per infectious disease, she will be able to be switched to p.o. doxy and Cipro. We are going to discuss with obstetrician if she needs any further treatment at the present time. All of this was discussed with the patient. All questions were answered to satisfaction. Job#: [id number] MONICA
[2018-12-20] MEDS: VANCOMYCIN HCL 1.5 GM in SODIUM CHLORIDE 0.9% 250ML 300 ML IV SCH ×2 (11:00→21:00)
--- NOTE | 2018-12-20 11:50 | NUR ---
PATIENT ASSISTED WITH SHOWER, LINENS CHANGED. OUT OF BED TO CHAIR, LEFT FOOT WOUNDS OPEN TO AIR. CALL LIGHT AT EASY REACH.
--- NOTE | 2018-12-20 13:59 | Discharge Summary ---
NO DICTATION, LENGTH 0:12 Job#: [id number] RI
--- NOTE | 2018-12-20 15:55 | NUR ---
PATIENT OUT OF BED TO CHAIR. IODINE APPLIED TO LEFT GREAT TOE AND PINKY TOE ORDERED. CALL LIGHT AT EASY REACH.
--- NOTE | 2018-12-20 16:43 | NUR ---
Nutrition Screen Note RD Recommendation for Physician: -Continue ADA diet as ordered Plan of Care: RD following, monitoring for tolerance and adequacy Nutrition reason for involvement: LOS Primary Diagnose(s): 1. Uncontrolled diabetes with left foot ulcer. 2. Left foot cellulitis with infected and gangrenous left small toe. 3. Probable peripheral arterial disease. 4. Urinary tract infection with Escherichia coli. PMH: DM Ht: 64in Wt: 192.13lb BMI: 33kg/m2 IBW: 120lb RD Assessment: (12/20) Chart reviewed. Labs and meds reviewed. 38yo F, who was admitted for L foot infection. Visited pt in room who denied significant wt loss, denied decrease in appetite FUR SORTER. Pt denied chewing/swallowing problems and nausea/vomiting. RN recorded 75-100% meal intake. Current diet is appropriate. Will continue to monitor and follow. Please consult as needed. Current Diet: ADA diet Malnutrition Evaluation (12/20/18) The patient does not meet criteria for a specified degree of malnutrition at this time. Will re-evaluate at follow-up as appropriate. Diet Education Needs Assessment: Diet education not indicated. Nutrition Care Level: low Signed: Ghazala Sommer, MS, RD, LD
[2018-12-20] MEDS: GLIMEPIRIDE 2 MG TAB PO SCH (17:42)
--- NOTE | 2018-12-20 18:57 | NUR ---
patient recieved awake, alert, lying quietly in bed. no c/o pain noted. left toe wounds remains open to air. pm assessment complete. patient instructed to call for assistance when needed.
[2018-12-20] MEDS: INSULIN GLARGINE 100 UNITS/ML VIAL SQ SCH (20:49)
[2018-12-21] VITALS (7 sets, daily range): BP systolic 104–146; BP diastolic 71–92
[2018-12-21] MEDS: PIPER-TAZ 3.375 GM 50 ML IV SCH (02:57)
--- NOTE | 2018-12-21 07:13 | NUR ---
PATIENT IN BED RESTING WITH NO RESPIRATORY DISTRESS. REDNESS AND SWELLING REMAINS TO LEFT FOOT, LEFT GREAT TOE AND PINKY TOE WOUND OPEN TO AIR. BED IN LOWER POSITION, CALL LIGHT AT REACH.
[2018-12-21] MEDS: INSULIN LISPRO 100 UNIT/1 ML 3ML VIAL SQ SCH ×8 (07:30→21:00)
[2018-12-21] MEDS: GLIMEPIRIDE 2 MG TAB PO SCH ×2 (09:10→17:55)
--- NOTE | 2018-12-21 10:34 | NUR ---
SPOKE WITH DR XIN MCGEE REGARDING ABNORMAL VANC TROUGH. NEW ORDER RECEIVED TO HOLD TODAY'S DOSE AND CHECK RANDOM VANC TOMORROW.
[2018-12-21] MEDS ORDERED: CEFEPIME HCL 1 GM VIAL IV SCH (12:00)
[2018-12-21] MEDS: CEFEPIME 1GM/NS 0.9% 50 ML 50 ML IV SCH ×2 (12:49→20:18)
--- NOTE | 2018-12-21 13:55 | NUR ---
DISCUSSED PT IN ROUNDS FOR DC PLANNING: PT'S VANC TROUGH 26.7 AND VANC WAS HELD. CEFEPIME 1GM Q12HR STARTED. PLAN FOR POSSIBLE DC HOME TOMORROW.
--- NOTE | 2018-12-21 13:57 | NUR ---
PATIENT SITTING AT BED SIDE. IODINE APPLIED TO LEFT TOES ORDERED. BED IN LOWER POSITION, CALL LIGHT AT REACH.
--- NOTE | 2018-12-21 14:06 | Progress Note ---
DATE: 12/21/2018 SUBJECTIVE: Ms. Montano is a 38-year-old female with history of diabetes, came to the emergency room with infection of left little toe. She has been on IV antibiotics. She has been seen by our Infectious Disease and Podiatry. OBJECTIVE: GENERAL: She is awake and alert. VITAL SIGNS: Temperature is 97.8, blood pressure 104/71. HEART: Regular rate. LUNGS: Clear to auscultation. ABDOMEN: Soft. EXTREMITIES: Lower extremity, left little toe looks very dark. The right big toe has some dark area also. No discharge or erythema. LABORATORY DATA: On the blood work, potassium 4.2, creatinine is 0.65, glucose 329. White count 9.02, hemoglobin 11.3, hematocrit 32.6. ASSESSMENT: 1. Uncontrolled diabetes with left foot ulcer. 2. Left foot cellulitis and infected gangrenous left small toe. 3. disease. 4. Urinary tract infection with Escherichia coli. PLAN: At the present time, we discussed with the patient different options. We are going to see if we can switch her to p.o. antibiotics. The patient wants to go home, so she can proceed as planned by foundry worker. We are going to discharge her home tomorrow on p.o. antibiotics. She will have to follow at the [facility] to look for further treatment of her lower extremity problem. The patient understood and agreed. All questions were answered to satisfaction. MD SHIRLENE Franco/ISMAEL /[id number]
--- NOTE | 2018-12-21 19:10 | NUR ---
patient recieved awake, alert, lying quietly in bed. no c/o pain noted. left foot/toes remain open to air per orders. pm assessment complete. patient instructed to call for assistance when needed.
[2018-12-21] MEDS: INSULIN GLARGINE 100 UNITS/ML VIAL SQ SCH (21:00)
[2018-12-22] VITALS: BP 126/74
[2018-12-22 04:15] VITALS: BP 121/77
--- NOTE | 2018-12-22 07:30 | NUR ---
PT UP IN BED ,DENIES PAIN,NO DISTRESS NOTED.
[2018-12-22 07:35] VITALS: BP 113/74
[2018-12-22] MEDS: CEFEPIME 1GM/NS 0.9% 50 ML 50 ML IV SCH (08:00)
[2018-12-22] MEDS: INSULIN LISPRO 100 UNIT/1 ML 3ML VIAL SQ SCH ×2 (08:00)
[2018-12-22] MEDS: GLIMEPIRIDE 2 MG TAB PO SCH (08:00)
[2018-12-22 08:21] VITALS: BP 113/74
--- NOTE | 2018-12-22 09:00 | NUR ---
DR SCRUGGS HERE.
[2018-12-22] MEDS ORDERED: AMARYL4 MG PO (10:58)
[2018-12-22] MEDS ORDERED: LANTUS 3ML100 UNITS/ SC (11:00)
[2018-12-22] MEDS ORDERED: ZOCOR40 MG (11:01)
[2018-12-22] MEDS ORDERED: ZOCOR20 MG PO (11:01)
[2018-12-22] MEDS ORDERED: KEFLEX500 MG PO (11:02)
[2018-12-22] MEDS ORDERED: CIPRO500 MG PO (11:02)
[2018-12-22 11:11] VITALS: BP 117/78
--- NOTE | 2018-12-22 12:36 | NUR ---
PT DISCHarged home IV DCD WITHOUT REDNESS OR SWELLING,PRESCRIPTIONS AND INSTRUCTIONS GIVEN.TRANSPORTED TO [facility] VIA W/C
[2018-12-22] MEDS ORDERED: CEFEPIME 1GM/NS 0.9% 50 ML 50 ML IV SCH (21:00)
--- NOTE | 2018-12-23 08:52 | Discharge Summary ---
HOSPITAL COURSE: Ms. Montano is a 38-year-old female with history of diabetes, came to the emergency room with a left little toe infection and ulcer. She was on IV antibiotics and wound care. She was seen by Infectious Disease and cylinder press operator helper. She also was found to have a urinary tract infection. PHYSICAL EXAMINATION: GENERAL: She is awake and alert. She wants to go home. VITAL SIGNS: Temperature is 98.1, blood pressure 113/74. HEART: Regular rate. LUNGS: Clear to auscultation. ABDOMEN: Soft. EXTREMITIES: Left foot has change of color on the fifth toe. It looks better than when she came to the emergency room. LABORATORY DATA: On the blood work, potassium is 4.2, creatinine is 0.66, glucose down to 100. White count 9.02, hemoglobin 11.3, and hematocrit 32.6. ASSESSMENT: 1. Uncontrolled diabetes with foot ulcer. 2. Left foot cellulitis and infected gangrenous left small toe. 3. Urinary tract infection with Escherichia coli. 4. Probably peripheral arterial disease. PLAN: The plan at the present time was discussed. We had a long conversation with the patient. We are going to discharge her home on Keflex 500 q.8 and Cipro 500 q.12. She is also going to be on Amaryl 4 mg twice a day, metformin 500 mg twice a day, and Lantus 25 units subcu at bedtime. She is to continue ADA diet, monitor blood sugar twice a day. The patient is willing to go home and then she states she is going to go to [facility] to see if she can get Gold Card, so they can continue to follow up her up there for her treatment. All this was discussed with her. All questions were answered to satisfaction. She is to call me or come to see me to my office or come to the emergency room if any recurrent problem. MD SHIRLENE Franco/ISMAEL /[id number]
== END 2018-12-22 12:40 | disposition home or self-care (01) | DRG 300 ==
LOC: ER 08:24 → ERHOLD 10:53 → MED/SURG3 14:18
PROVIDERS: ADMIT Internal Medicine; ATTEND Internal Medicine
DX: E11.52 Type 2 diabetes mellitus with diabetic peripheral angiopathy with gangrene (principal); N39.0 Urinary tract infection, site not specified; I96 Gangrene, not elsewhere classified; L03.116 Cellulitis of left lower limb; E11.65 Type 2 diabetes mellitus with hyperglycemia; Z79.4 Long term (current) use of insulin; E11.51 Type 2 diabetes mellitus with diabetic peripheral angiopathy without gangrene; B96.20 Unspecified Escherichia coli [E. coli] as the cause of diseases classified elsewhere; E66.9 Obesity, unspecified; Z68.34 Body mass index [BMI] 34.0-34.9, adult; I99.8 Other disorder of circulatory system
CPT/HCPCS: 36415; 71045; 80053; 80202; 81001; 81025; 82550; 82553; 82948; 83605; 83735; 84484; 85025; 85610; 85651; 85730; 86140; 87040; 87086; 87186; 93005; 93925; 96366; 99284; J0692; J1815; J2270; J2405; J2543; J3370; J7030; J7050